=== PATIENT | male | born 1940 | race Caucasian/White ===

== ENCOUNTER 2017-06-14 17:13 | Emergency (ER) | payer MEDICAID ==
[~2017-06-14] VITALS: Ht 167.6 cm; Wt 67.5 kg
[2017-06-14 17:19] VITALS: Ht 167.6 cm; Wt 67.5 kg
[2017-06-14] MEDS ORDERED: SOD CHLORIDE 0.9% 500 ML IV STA (17:33)
--- NOTE | 2017-06-14 17:41 | ERD ---
ER Documentation Chief Complaint Chief Complaint Complains of dizziness with an elevated BP HPI This is a 77-year-old male with a past medical history of hypertension, hyperlipidemia who is presenting with lightheadedness, dizziness in the setting of elevated blood pressure. The patient does not take any medications, but he does report taking vitamins such as fish oil. The patient reports that he started to feel dizzy approximately 3 days ago. He has not had any increased exertion. He has not had any torsion to his neck. He does not endorse any chest pain or trouble breathing. The patient does note that he feels lightheaded like he is going to pass out. However, he also states that he feels like the room is spinning. He says that the lightheadedness/dizziness is worse with movement of his eyes as well as with position. The patient denies feeling sick recently. The patient denies fever or chills. The patient has had no headache or vision changes. The patient does not endorse neck or back pain. The patient has had no chest pain or shortness of breath or trouble breathing. The patient denies nausea or vomiting. The patient denies abdominal pain or changes to bowel movements or urination. The patient has had no focal deficits. The patient has had no weakness or numbness or tingling to the face or extremities. ROS All systems reviewed and are negative except as per history of present illness. Medications Home Meds Active Scripts Hydrochlorothiazide* (Hydrochlorothiazide*) 25 Mg Tab, 25 MG PO DAILY, #30 TAB Prov:TIMUR ALLEN MD 06/14/17 Allergies Allergies: Coded Allergies: fish oil (Verified Allergy, Intermediate, 06/14/17) PMhx/Soc Medical and Surgical Hx: pt denies Surgical Hx History of Surgery: No Hx Neurological Disorder: No Hx Respiratory Disorders: No Hx Cardiac Disorders: Yes (HTN, HLD) Hx Psychiatric Problems: No Hx Miscellaneous Medical Probl: No Hx Alcohol Use: No Hx Substance Use: No Hx Tobacco Use: No Smoking Status: Never smoker FmHx Family History: No coronary disease, No diabetes Physical Exam Vitals Vital Signs Date Time Temp Pulse Resp B/P Pulse Ox O2 Delivery O2 Flow Rate FiO2 06/14/17 18:40 98.7 63 20 160/81 99 Room Air 06/14/17 18:08 59 20 202/82 99 Room Air 06/14/17 17:57 98.7 63 19 184/82 100 Room Air 62 177/76 77 202/84 06/14/17 17:19 98.3 63 20 206/93 99 Physical Exam Const: No apparent distress, well-developed, well-nourished Head: Atraumatic Eyes: Normal Conjunctiva. Extraocular movements intact. ENT: Normal External Ears, Nose and Mouth. Horizontal nystagmus with crease dizziness during rightward gaze. Neck: Full range of motion. No meningismus. Resp: Clear to auscultation bilaterally Cardio: Regular rate and rhythm, no murmurs Abd: Soft, non tender, non distended. Normal bowel sounds Skin: No petechiae or rashes Back: No midline or flank tenderness Ext: No cyanosis, or edema Neur: Awake and alert, oriented 4. Cranial nerves intact. No facial droop. Normal strength and sensation in all extremities. Coordination with finger to nose normal. Psych: Normal Mood and Affect Result Diagram: 06/14/17174906/14/171749 Results 24 hrs Laboratory Tests Test 06/14/17 17:50 White Blood Count 7.910^3/ul Red Blood Count 4.3210^6/ul Hemoglobin 13.8g/dl Hematocrit 41.4% Mean Corpuscular Volume 95.8fl Mean Corpuscular Hemoglobin 31.9pg Mean Corpuscular Hemoglobin Concent 33.3g/dl Red Cell Distribution Width 13.3% Platelet Count 8210^3/UL Mean Platelet Volume 12.4fl Neutrophils % 56.9% Lymphocytes % 32.6% Monocytes % 8.6% Eosinophils % 1.4% Basophils % 0.4% Nucleated Red Blood Cells % 0.0/100WBC Neutrophils # 4.510^3/ul Lymphocytes # 2.610^3/ul Monocytes # 0.710^3/ul Eosinophils # 0.110^3/ul Basophils # 0.010^3/ul Nucleated Red Blood Cells # 0.010^3/ul Sodium Level 145mmol/L Potassium Level 3.4mmol/L Chloride Level 105mmol/L Carbon Dioxide Level 29mmol/L Anion Gap 14 Blood Urea Nitrogen 12mg/dl Creatinine 0.89mg/dl Glucose Level 179mg/dl Calcium Level 9.5mg/dl Troponin I < 0.012ng/ml Current Medications Medications (Trade) Dose Ordered Sig/Raudel Route PRN Reason Start Time Stop Time Status Last Admin Dose Admin Sodium Chloride (NS) 500 ml @ 500 mls/hr Q1H STAT IV 06/14/17 17:33 06/14/17 18:32 DC 06/14/17 17:38 Meclizine HCl (Antivert) 25 mg ONCE ONCE PO 06/14/17 20:30 06/14/17 20:31 DC 06/14/17 20:59 Ketorolac Tromethamine (Toradol) 15 mg ONCE STAT IV 06/14/17 20:26 06/14/17 20:27 DC 06/14/17 20:59 Procedures/MDM MDM The patient's presentation warrants further investigation. The patient has symptoms that are consistent with vertigo. However, the patient does not have a history of vertigo and I will complete a presyncope workup. I will evaluate for any metabolic abnormalities. I will perform a cardiac workup. The patient' s neurologic exam is unremarkable aside from right eye nystagmus with worsening dizziness associated with horizontal eye movements. I will complete a CT of the head, but I have low suspicion for a neurologic etiology. LABS The patient's blood work was obtained and reviewed. The patient's CBC shows no leukocytosis or left shift. The patient is afebrile and does not appear systemically ill. I do not suspect a systemic infection. The patient is mildly anemic today, but it is not so low that I expect this to be the ideology of his symptoms. This does not require emergent treatment. The patient does have a thrombocytopenia, but he does not have any obvious bleeding. This may be followed up as an outpatient. The patient's BMP shows no signs of urgent metabolic or electrolyte abnormality. The patient has normal renal function testing. The patient does have a mild hypokalemia that does not need to be emergently treated and is unlikely to be the etiology of his symptoms. EKG EKG read by me: Rate/Rhythm: Regular rate and rhythm at a rate of 60 Intervals: Normal Latimer: Normal Impression: No evidence of ischemia or arrhythmia IMAGING CT Head FINDINGS: Ventricular system appears unremarkable. Periventricular low density area suggestive of deep white matter ischemic changes. Old infarct right tee radiata,, left basal ganglia is seen. Small old infarct brain stem also noted. Posterior fossa appears unremarkable. No acute intracranial bleed, midline shift , acute extra-axial collection noted. Proportionate overlying brain atrophy seen. Mucoperiosteal thickening maxillary sinus suggestive of inflammatory process. Bony calvarium and overlying soft tissues appear unremarkable. 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 NO ACUTE INTRACRANIAL BLEED NOTED. Electronically viewed and signed by Physician Giulia on 06/14/2017 19: 47 CXR FINDINGS: The cardiomediastinal silhouette is within normal limits. The lungs are clear without focal consolidation, effusion, or pneumothorax. There are no acute osseous abnormalities. IMPRESSION: No acute cardiopulmonary abnormality. Electronically viewed and signed by .Indio Peters MD, MD on 06/14/2017 19:13 TREATMENT/DISPOSITION The patient's symptoms completely resolved after receiving meclizine. Symptoms are consistent with vertigo at this time. The patient had multiple incidental findings of a mild anemia, mild thrombocytopenia and mild hypokalemia. He has not drink alcohol, and I have low suspicion for liver disease. These results were discussed with the patient and his son, and they want to follow-up with a primary care physician. This should be done next week. The patient also has a history of hypertension that has been untreated. The patient will be given a prescription for HCTZ. The patient was instructed to follow-up with the primary care doctor to discuss further blood pressure control. At this time, I feel that the patient stable for discharge. The patient's dizziness has resolved. I do not see a metabolic, cardiac or neurologic etiology of his symptoms. The patient is not orthostatic. He will need follow- up with his primary care physician in 2-3 days. He will be given strict precautions with which to return to the emergency department. The patient's blood pressure was elevated at greater than 120/80 while in the emergency department. The patient was otherwise stable with no evidence of hypertensive urgency or emergency. The patient will require reevaluation of his blood pressure in 2-3 days, but this may be completed by a primary care physician as an outpatient. He does not require admission for blood pressure control. Departure Diagnosis: Primary Impression: Dizziness Additional Impressions: Hypertension Hypertension type: unspecified Qualified Code: I10 - Hypertension, unspecified type Thrombocytopenia Hypokalemia Anemia Anemia type: unspecified type Qualified Code: D64.9 - Anemia, unspecified type Condition: TIMUR Botello MD Jun 14, 2017 17:41
[2017-06-14 18:40] VITALS: TEMP 98.7
--- NOTE | 2017-06-14 19:13 | RADRPT ---
PROCEDURE: X-ray Chest. CLINICAL INDICATION: Syncope. TECHNIQUE: Single view chest x-ray. COMPARISON: None available. FINDINGS: The cardiomediastinal silhouette is within normal limits. The lungs are clear without f ocal consolidation, effusion, or pneumothorax. There are no acute osseous abnormalities. IMPRESSION: 1. No acute cardiopulmonary abnormality. RPTAT: [facility] .Indio Peters MD, MD Date Time Electronically viewed and signed by .Indio Peters MD, on 06/14/2017 19:13 .P/
--- NOTE | 2017-06-14 19:47 | RADRPT ---
PROCEDURE: CT HEAD NON CONTRAST CLINICAL INDICATION: Syncope TECHNIQUE: Utilizing the multi-slice spiral CT scanner, multiple images were obtained through the b rain without intravenous contrast. Automatic exposure control was utilized as dose lowering techniqu e One of more of the following dose reduction techniques were utilized: -automatic exposure control.-a djustment of the mA and/or kV according to patient size. -Use of iterative reconstruction technique. Radiation Dose: CTDI is 45.01 mGy. DLP is 720.23 mGy-cm. COMPARISON: None FINDINGS: Ventricular system appears unremarkable. Periventricular low density area suggestive of deep white m atter ischemic changes. Old infarct right tee radiata,, left basal ganglia is seen. Small old inf arct brain stem also noted. Posterior fossa appears unremarkable. No acute intracranial bleed, midli ne shift, acute extra-axial collection noted. Proportionate overlying brain atrophy seen. Mucoperios teal thickening maxillary sinus suggestive of inflammatory process. Bony calvarium and overlying sof t tissues appear unremarkable. 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 NO ACUTE INTRACRANIAL BLEED NOTED. RPTAT: [facility] Physician Giulia Date Time Electronically viewed and signed by Physician Giulia on 06/14/2017 19:47 MB/
[2017-06-14] MEDS ORDERED: KETOROLAC 15 MG INJ IV STA (20:26)
[2017-06-14] MEDS ORDERED: MECLIZINE 12.5 MG TAB PO ONE (20:30)
[2017-06-14 21:55] VITALS: BP 159/85; PULSE 57; RESP 15
[2017-06-14] MEDS ORDERED: HYDR25TA6 PO (22:28)
== END 2017-06-14 22:41 | disposition home or self-care (01) ==
LOC: E/R 17:13
DX: R42 Dizziness and giddiness (principal); R40.2252 Coma scale, best verbal response, oriented, at arrival to emergency department; I10 Essential (primary) hypertension; D69.6 Thrombocytopenia, unspecified; E87.6 Hypokalemia; D64.9 Anemia, unspecified; R40.2142 Coma scale, eyes open, spontaneous, at arrival to emergency department; R40.2362 Coma scale, best motor response, obeys commands, at arrival to emergency department
CPT/HCPCS: 36415; 70450; 71010; 80048; 84484; 85025; 93005; 96374; J1885; J7040; Z7502; Z7610